=== PATIENT | female | born 1970 | race African-American/Black ===

== ENCOUNTER 2020-02-05 13:36 | Emergency (ER) | payer OTHER ==
[2020-02-05 13:52] VITALS: BP 141/83; PULSE 60; TEMP 98.4; BMI 25.8
[2020-02-05] MEDS ORDERED: IBUPROFEN 600 MG TABLET (FP) PO ONE ×2 (15:06→15:07)
== END 2020-02-05 15:14 | disposition home or self-care (01) ==
LOC: JERFT 13:36
PROC: 2W39XYZ Immobilization of Left Upper Extremity using Other Device (ICD-10-PCS; principal; 2020-02-05)
DX: S59.902A Unspecified injury of left elbow, initial encounter (principal); W19.XXXA Unspecified fall, initial encounter
CPT/HCPCS: 73090-TC-LT-FY; 73110-TC-LT-FY; 73130-TC-LT-FY; 99284-25

== ENCOUNTER 2020-03-04 11:46 | Day surgery (SDC) | payer OTHER ==
--- OUTSIDE RECORDS SUMMARY | 2020-03-03 08:30 | XMS ---
:1970 Author Organization [facility] Support Name Relationship Address Phone GEORGE CRAWFORD FRIEND [address] [place] [address] [employer] Unavailable [address] [place] [address] [employer] Unavailable [address] [place] [address] JAVI BRIONES [place] [address] Re-disclosure Warning The records that you are about to access may contain information from federally- assisted alcohol or drug abuse programs. If such information is present, then the following federally mandated warning applies: This information has been disclosed to you from records protected by federal confidentiality rules (42 CFR part 2). The federal rules prohibit you from making any further disclosure of this information unless further disclosure is expressly permitted by the written consent of the person to whom it pertains or as otherwise permitted by 42 CFR part 2. A general authorization for the release of medical or other information is NOT sufficient for this purpose. The Federal rules restrict any use of the information to criminally investigate or prosecute any alcohol or drug abuse patient.The records that you are about to access may contain highly sensitive health information, the redisclosure of which is protected by Article 27-F of the [place] State Public Health law. If you continue you may haveaccess to information: Regarding HIV / AIDS; Provided by facilities licensed or operated by the [facility] Office of Mental Health; or Provided by the [facility] Office for People With Developmental Disabilities. If such information is present, then the following [facility] mandated warning applies: This information has been disclosed to you from confidential records which are protected by state law. State law prohibits you from making any further disclosure of this information without the specific written consent of the person to whom it pertains, or as otherwise permitted by law. Any unauthorized further disclosure in violation of state law may result in a fine or long term sentence or both. A general authorization for the release of medical or other information is NOT sufficient authorization for further disclosure. Results ID Date Data Source [id number] 03/01/2020 02:28:00 PM EST [facility] Name Value Range Interpretation Description Data Sup porting Code Source(s) Document(s ) SARS [facility] coronavirus 2 RNA This lab was ordered by [facility] and reported by [facility]. Insurance Providers Payer name Policy type / Policy ID Covered Covered alliance party's Policy Plan Coverage type alliance party ID relationship to Ba Information ba
[2020-03-03 14:00] VITALS: BMI 30.2
--- OUTSIDE RECORDS SUMMARY | 2020-03-04 12:09 | XMS ---
:1970 Author Organization [facility] Support Name Relationship Address Phone GEORGE CRAWFORD FRIEND [address] [place] [address] [employer] Unavailable [address] [place] [address] [employer] Unavailable [address] [place] [address] JAVI BRIONES [employer] [place] [address] GEORGE CRAWFORD Other [address] [place] [address] Re-disclosure Warning The records that you are [...] is protected by Article 27-F of the [facility] Public Health law. If you continue you may haveaccess to information: Regarding HIV / AIDS; Provided by facilities licensed or operated by the [facility] Office of Mental Health; or Provided by the [facility] Office for People With Developmental Disabilities. If such information is present, then the following [facility] mandated warning applies: This information has been [...] law may result in a fine or retirement sentence or both. A general authorization for the release of medical or other information is NOT sufficient authorization for further disclosure. Results ID Date Data Source [id number] 03/01/2020 02:28:00 PM EST [facility] Name Value Range Interpretation Description Data Sup porting Code Source(s) Document(s ) SARS [facility] coronavirus 2 RNA This lab was ordered by [facility] and reported by [facility]. Insurance Providers Payer name Policy type / Policy ID Covered Covered democrat's Policy Plan Coverage type democrat ID relationship to Ba Information ba
[2020-03-04] MEDS ORDERED: PROPOFOL 20 ML ONE ×2 (12:56→13:17)
[2020-03-04] MEDS ORDERED: SUCCINYLCHOLINE CHLORIDE 200 MG/10 ML SYRINGE ONE (12:56)
[2020-03-04] MEDS ORDERED: ROCURONIUM BROMIDE 50 MG/5 ML SYRINGE ONE (12:56)
[2020-03-04] MEDS ORDERED: MIDAZOLAM HCL 2 MG/2 ML SINGLE DOSE VIAL ONE (12:57)
[2020-03-04] MEDS ORDERED: ONDANSETRON 4 MG/2 ML VIAL IVPUSH PRN (12:59)
--- NOTE | 2020-03-04 13:06 | HP ---
History & Physical Update - History History: No Change - Physical Physical: No Change - Assessment Assessment: No Change Currently as noted:: MRI reviewed - Plan Plan: No Change
[2020-03-04] MEDS ORDERED: BUPIVACAINE HCL/PF 0.5% (5MG/ML) 10 ML VIAL ONE (13:07)
[2020-03-04] MEDS ORDERED: ONDANSETRON 4 MG/2 ML VIAL ONE ×2 (13:22→17:53)
[2020-03-04] MEDS ORDERED: DEXAMETHASONE SOD PHOSPHATE 4 MG/1 ML VIAL ONE (13:22)
[2020-03-04] MEDS ORDERED: ceFAZolin SODIUM 1 GM VIAL ONE (13:33)
[2020-03-04] MEDS ORDERED: TRANEXAMIC ACID 1000 MG/10 ML VIAL ONE (15:15)
[2020-03-04] MEDS ORDERED: BUPIVACAINE HCL/PF 0.5% (5MG/ML) 10 ML VIAL IJ ONE ×2 (15:45→16:19)
[2020-03-04] MEDS ORDERED: oxyCODONE HCL 5 MG TABLET PO PRN (17:10)
[2020-03-04] MEDS ORDERED: ALBUTEROL SO4 HFA INHALER IH PRN (17:18)
--- NOTE | 2020-03-04 19:16 | OPR ---
OPERATIVE PROCEDURE: Left elbow prosthetic radial head replacement with repair of the lateral ulnar collateral ligament. PREOPERATIVE DIAGNOSIS: Left elbow fracture dislocation with a terrible triad configuration. POSTOPERATIVE DIAGNOSIS: Left elbow fracture dislocation with a terrible triad configuration. SURGEON: Chuck Rolon DO RESPIRATORY PRACTITIONER: Sam Quintero DO ANESTHESIA: General endotracheal anesthesia EBL: 25 mL DRAINS: none TOTAL IV FLUID: As per anesthesia record SPECIMENS: Radial head IMPLANTS: [employer] Evolve Proline Read Head Size 20 +2; [employer] Evolve Proline Stem 6.5 +2; Morris [employer] Nephew 1.9mm SutureFix [place], double loaded with suture INDICATIONS FOR SURGERY: The patient is a 49 year-old left-hand dominant female, who on February 05, 2020, now nearly 1 month ago, sustained a left elbow injury when she fell onto an outstretched hand. She presented to the emergency department where she was placed in a splint. She was sent to my office. Based on radiographs, the patient was found to have a radial neck fracture with significant impaction, displacement and angulation, and a coronoid tip fracture. Impaction and comminution of the radial neck, and fracture of the coronoid were verified by preoperative CT scan. Preoperative MRI confirmed tears of the lateral ulnar collateral ligament and medial collateral ligament, consistent with an elbow dislocation with a terrible triad injury. Due to the injury pattern and significant block to range of motion, I offered open reduction internal fixation vs prosthetic radial head replacement for an impacted and comminuted radial neck fracture, and ligamentous repair. She understands the goals, nature, risks and benefits of proposed surgery as well as alternative modes of therapy and she opts to proceed surgery as described below. OPERATIVE FINDINGS: Comminuted and impacted partially healed fracture of the radial head and neck area with significant angulation and displacement and anterior capsular scarring already underway with a coronoid fracture as noted above. DESCRIPTION OF SURGERY: The patient was brought to the operating room, where after proper identification with the wrist band, she is placed supine on the operating table. A proximal tourniquet was placed about the left upper extremity and a sterile prep and drape was carried out. Following esmarch exsa nguination of the extremity, the tourniquet was inflated to 250 mmHg. Of note, total tourniquet time for this case was 73 minutes. Using #15 blade, a 10 cm lateral incision was made centered on the lateral epicondyle extending distally in Arredondo's interval, proximally it is along the long axis of the shaft of the humerus. The skin was incised sharply, this was taken down to the brachial fascia proximally and antebrachial fascia distally. The radial head was palpated. This was based on radiographs in a displaced and angulated position. The lateral epicondyle was then identified and the dissection of the distal fibers of brachialis from the anterior lateral humerus allowed exposure of the capsule. The capsule was then opened at the radiocapitellar joint. Staying at the level of the midline of the radiocapitellar joint, this incision was extended distally for 4 cm. Of note, the posterior interosseous nerve was protected throughout the case. Next, the capsule was opened longitudinally after elevating the common extensors anteriorly off the annular ligament and posteriorly as well. The annular ligament was incised along the longitudinal axis of the forearm. This allowed reflexion of the capsule anteriorly and posteriorly. The radial head and neck fracture was identified. Copious irrigation of the fracture was carried out and a rongeur was used to remove abundant tenosynovitis and coagulated hematoma. The radial head was found to be partially healed requiring an osteotome to mobilize the radial head fragment. Due to the significant amount of comminution and poor integrity of the radial neck, the decision was made to proceed with a radial head arthroplasty. The radial head was removed. Next, broaching of the proximal radius was carried out using the [employer] Evolve Proline broaches for the anatomic radial head prosthesis. Using the planer from the [employer] System, the planer was used to create a cut tangential to the long axis of the radius. A 20 mm +2 head with a 6.5 mm stem with +2 mm neck flank was found to fit ideally based on direct intraoperative visualization of the proximal, radial, ulnar joint and position of the coronoid. Next, the 6.5 mm stem size was found to fit the best. Therefore a 6.5 mm stem with a +2 mm neck and a 20 mm +2 head was selected as optimal size. The trial was removed. Next, the final radial head prosthesis was built on the back table. Following assembly of the final prosthesis, copious irrigation of the elbow was carried out with normal saline. The final prosthesis was then placed. Intraoperative C-arm imagery verified appropriate size and placement of the prosthesis. At this point a Morris and Nephew 1.9 mm SutureFix anchor was placed into the footprint of the lateral ulnar collateral ligament at the capitellum. The lateral collateral ligament complex was secured using a running locking stitch and sutured back to its original footprint. The arm was placed through flexion, extension showing no evidence of subluxation. Intraoperative C-arm imagery verified ulnohumeral reduction in a concentric fashion as well as well positioned radial head with no evidence of posterior sag. At this point, the tourniquet was deflated. Copious irrigation with normal saline was carried out. The annular ligament was reconstructed using #0 Vicryl suture in a [id number] suture fashion. Following capsular closure, a 2-0 Vicryl suture was used to close the brachial and antebrachial fascia in running suture fashion. Hemostasis was achieved with a monopolar electrocautery unit. Copious irrigation with normal saline was carried out. The subcutaneous tissues were approximated with a combination of 2-0 and 4-0 Vicryl in inverted simple suture fashion. The skin was closed with a running subcuticular suture of 4-0 Monocryl. The incision was overlaid with dermabond, telfa, and gauze followed by dressing sponges. These were held in place with Webril followed by a 5 x 30 inch posterior splint with the elbow flexed at 90 degrees in neutral pronation and supination. The splint was held in place with Webril and an Wellington wrap. The patient tolerated this procedure well. There were no intraoperative complications. Upon waking in the operating room, she was able to flex and extend all fingers to include active extension of the thumb and index finger indicating intact posterior interosseous nerve function. Attestation for nursing assistant: Dr. Sam Quintero acted as the nursing assistant. There was no qualified resident or physician assistant brand manager available to do so. Postoperative rehabilitation: Radial head replacement/Terrible triad protocol. The patient will remain in a posterior splint until their first postoperative visit. They will then be converted to a hinged elbow brace and begin AROM. No PROM until cleared.
[2020-03-04] MEDS: CEFAZOLIN 2 GM/D5W 2 GM/50 ML ML IVPB SCH (22:20)
[2020-03-05] MEDS: CEFAZOLIN 2 GM/D5W 2 GM/50 ML ML IVPB SCH ×2 (05:43→13:12)
[2020-03-05] MEDS: ACETAMINOPHEN 500 MG TABLET (FP) PO SCH ×3 (05:43→13:11)
[2020-03-05] MEDS: oxyCODONE HCL 5 MG TABLET PO PRN ×2 (05:44→13:16)
--- NOTE | 2020-03-05 07:44 | PN ---
Progress Note (short form) - Note Progress Note: ORTHOPEDIC SURGERY PROGRESS NOTE Department of Orthopedic Surgery SUBJECTIVE No acute events overnight. No complaints currently. Denies chest pain, shortness of breath, or calf pain. No nausea or vomiting. Tolerating oral intake. Pain controlled. PHYSICAL EXAMINATION General: Alert, oriented, cooperative and no distress. Upper Extremity: Dressing/splint intact; Skin intact, no lesions, rashes or ulcers noted. Muscle mass equal and symmetric to contralateral side. No atrophy noted. No masses or effusions noted. No tenderness to palpation. Full passive and active finger ROM, free from pain. M/R/ PIN/U motor intact; SILT distally; 2+ radial pulses; Cap refill brisk. DVT Exam: No evidence of DVT seen on physical exam; No cords or calf tenderness; No significant calf/ankle edema. Intake & Output 03/03/20 03/04/20 03/05/20 23:59 23:59 23:59 Intake Total 1400 Output Total 525 Balance 875 Intake: IV 1000 Oral 400 Output: Urine 500 Void 500 Estimated Blood Loss 25 Other: Voiding Method Toilet Toilet Weight 179 lb 179 lb Height 5 ft 4.5 in 5 ft 4.5 in Body Mass Index (BMI) 30.2 30.2 Weight Measurement Method Standing Scale Standing Scale Active Medications Generic Name Dose Route Start Last Admin Trade Name Freq PRN Reason Stop Dose Admin Acetaminophen 1,000 mg 03/04/20 18:00 03/05/20 05:43 Acetaminophen 500 Mg Tablet (Fp) PO 1,000 mg Q6HPO [facility] Administration Albuterol Sulfate 2 puff 03/04/20 17:18 Albuterol So4 Hfa Inhaler IH Q4H PRN SHORT OF BREATH/WHEEZING Amlodipine Besylate 5 mg 03/05/20 10:00 Amlodipine Besylate 5 Mg Tablet (Fp) PO 03/05/20 10:01 ONCE ONE Aspirin 325 mg 03/05/20 10:00 Aspirin 325 Mg Enteric Coated Tablet (Fp) PO DAILY [facility] Fentanyl 50 mcg 03/04/20 12:59 03/04/20 17:35 Fentanyl Citrate 100 Mcg/2 Ml Ampul IVPUSH 25 mcg [id number] PRN Administration PAIN-PACU ORDER X 4 DOSES ONLY Lactated Ringer's 1,000 mls @ 125 mls/hr 03/04/20 13:00 Lactated Ringers Solution IV ASDIR ELISHA Cefazolin Sodium/Dextrose 2 gm in 50 mls @ 100 mls/hr 03/04/20 21:30 03/05/20 05:43 Ancef 2 Gm Premixed Ivpb - IVPB 03/05/20 13:59 100 mls/hr Q8H ELISHA Administration Lisinopril 20 mg 03/05/20 10:00 Lisinopril 20 Mg Tablet PO 03/05/20 10:01 ONCE ONE Ondansetron HCl 4 mg 03/04/20 12:59 03/04/20 17:50 Ondansetron 4 Mg/2 Ml Vial IVPUSH 4 mg Q6H PRN Administration NAUSEA AND/OR VOMITING Oxycodone HCl 5 mg 03/04/20 12:59 03/05/20 05:44 Oxycodone Hcl 5 Mg Tablet PO 5 mg Q4H PRN Administration PAIN LEVEL 1-5 Oxycodone HCl 10 mg 03/04/20 17:10 Oxycodone Hcl 5 Mg Tablet PO Q4H PRN PAIN LEVEL 6-10 Vital Signs (last) Temp Pulse Resp BP Pulse Ox 98.1 F 78 18 121/75 100 03/05/20 06:00 03/05/20 06:00 03/05/20 06:00 03/05/20 06:00 03/05/20 06:00 IMAGING Postoperative radiographs show a radial head arthroplasty in good position. Elbow joint is concentrically reduced. ASSESSMENT AND PLAN Yumiko Huston is a 49 year old female status post left elbow radial head arthroplasty and lateral ulnar collateral ligament repair. POD#1. Patient admitted overnight for pain control and prophylactic postoperative antibiotics. - Pain control - DVT prophylaxis - Ice/Elevation - Elevate HOB, encourage oral intake - NWB. Finger range of motion okay. - Disharge home.
[2020-03-05] MEDS: LACTATED RINGERS SOLUTION 1,000 ML IV SCH ×2 (08:47→13:14)
[2020-03-05] MEDS ORDERED: LISINOPRIL 20 MG TABLET PO ONE (10:00)
[2020-03-05] MEDS ORDERED: amLODIPine BESYLATE 5 MG TABLET (FP) PO ONE (10:00)
[2020-03-05] MEDS ORDERED: ASPIRIN 325 MG ENTERIC COATED TABLET (FP) PO SCH (10:00)
[2020-03-05 14:01] VITALS: BP 132/55; PULSE 75; TEMP 98.9
--- NOTE | 2020-03-06 15:35 | PATH ---
Surgical Pathology Report Patient Name: PHOEBE SHELTON Med. Rec. #: [id number] /Age/Gender: 1970 (Age: 49) / F Account: [id number] Location: [facility] Taken: 03/04/2020 Received: 03/04/2020 Reported: 03/06/2020 Physicians: Chuck Rolon DO Specimen(s) Received LEFT ELBOW RADIAL HEAD BONE Clinical History Left elbow radial neck fracture Final Diagnosis BONE, ELBOW, RADIAL HEAD, LEFT, PROSTHETIC RADIAL HEAD REPLACEMENT: BONE WITH INTERSTITIAL HEMORRHAGE CONSISTENT WITH FRACTURE. Electronically Signed Audrey Guzmán M.D. Gross Description Received in formalin, labeled "left elbow radial head bone," is a 2 cm. radial head. The margin of resection is hemorrhagic and irregular. No areas of eburnation are identified. The underlying trabecular bone is yellow and hard. A truck sales representative section is submitted in one cassette, following decalcification. MLSZ/03/05/2020 [email or web address]/03/05/2020
== END 2020-03-05 18:51 | disposition home or self-care (01) ==
LOC: FASU 11:46 → FM/S 17:11 → FASU 03-05 18:51
PROVIDERS: ATTEND Orthopaedic Surgery
PROC: 0PRH0JZ Replacement of Right Radius with Synthetic Substitute, Open Approach (ICD-10-PCS; principal; 2020-03-04 14:15)
DX: S52.132A Displaced fracture of neck of left radius, initial encounter for closed fracture (principal); W01.0XXA Fall on same level from slipping, tripping and stumbling without subsequent striking against object, initial encounter; Y93.9 Activity, unspecified; Y92.9 Unspecified place or not applicable
CPT/HCPCS: 24666; C1776; 73070-TC-LT-FY